=== PATIENT | male | born 1955 | race Caucasian/White ===

== ENCOUNTER 2024-06-27 11:00 | Inpatient (IN) | payer OTHER ==
[~2024-06-27] VITALS: Ht 162.6 cm; Wt 86.8 kg
[2024-06-27] VITALS (7 sets, daily range): BP systolic 108–116; BP diastolic 69–73; PULSE 85–92; RESP 16–20; TEMP 97.9–98; O2SAT 91–95
[2024-06-27 15:23] LABS: BASOPHILS # (AUTO) 0.03 K/uL (0.00-0.20); BASOPHILS % (AUTO) 0.3 % (0.0-5.0); HEMATOCRIT 39.9 % (42-54); IMMATURE GRANULOCYTE ABSOLUTE 0.04 K/uL (0-1); LYMPHOCYTES # (AUTO) 2.1 K/uL (1.0-4.8); LYMPHOCYTES % (AUTO) 20.6 % (21.0-51.0); MEAN CORPUSCULAR HEMOGLOBIN 30.9 pg (27.0-33.0); MEAN CORPUSCULAR HGB CONC 34.3 g/dL (32.0-36.0); MEAN CORPUSCULAR VOLUME 89.9 fL (79-99); MONOCYTES # (AUTO) 0.6 K/uL (0.1-1.0); MONOCYTES % (AUTO) 6.2 % (3.0-13.0); NEUTROPHILS # (AUTO) 7.4 K/uL (1.8-7.7); NEUTROPHILS % (AUTO) 71.5 % (40.0-77.0); PLATELET COUNT (AUTO) 268 K/uL (130-400); RED BLOOD CELL COUNT(AUTO) 4.44 MIL/uL (4.50-6.20); RED CELL DISTRIBUTION WIDTH 12.5 % (11.0-15.5); WHITE BLOOD COUNT (AUTO) 10.3 K/uL (4.8-10.8)
[2024-06-27 15:39] LABS: CREATININE 1.1 mg/dL (0.5-1.3); POTASSIUM 4.2 mmol/L (3.5-5.1)
[2024-06-27 15:44] LABS: BILIRUBIN,TOTAL 0.6 mg/dL (0.2-1.0); TOTAL PROTEIN, SERUM 7.3 g/dL (6.0-8.3)
[2024-06-27] MEDS ORDERED: acetaMINOPHEN 325 MG TAB PO PRN (17:30)
[2024-06-27] MEDS ORDERED: ondanSETRON 4MG INJ IVP PRN (17:30)
[2024-06-27] MEDS ORDERED: PoTASSium chloRIDE 20MEQ/100ML 100 ML IV PRN (17:30)
[2024-06-27] MEDS ORDERED: hydrALAZine 20MG/ML VIAL IV PRN (17:30)
[2024-06-27] MEDS ORDERED: LAbetaLOL 20MG SYG IV PRN (17:30)
[2024-06-27] MEDS ORDERED: PoTASSium chl 10% ELIXIR 20MEQ 20 MEQ/15 ML UDCUP PO PRN (17:30)
[2024-06-27] MEDS ORDERED: MAGNESIUM 2GM PREMIX 50ML 50 ML IV PRN (17:30)
[2024-06-27] MEDS ORDERED: acetaMINOPHEN 650 MG SUPPOSITORY RC PRN (17:30)
[2024-06-27] MEDS ORDERED: ALBUTEROL 0.083% 2.5 MG/3 ML INH IH PRN (17:30)
[2024-06-27 17:40] LABS: HEMOGLOBIN A1C 9.6 % (4.0-6.0)
[2024-06-27] MEDS: furoSEMIDE 40MG VIAL IV SCH (17:55)
[2024-06-27] MEDS: cefTRIAXone 1G VIAL IVPB SCH (17:55)
[2024-06-27] MEDS: AZITHROMYCIN 500MG+NS 250ML 250 ML IVPB SCH (17:55)
[2024-06-27 18:01] LABS: APPEARANCE,URINE CLEAR (CLEAR); BILIRUBIN,URINE NEGATIVE (NEGATIVE); COLOR,URINE YELLOW (YELLOW); GLUCOSE, URINE (UA) >=1000 mg/dL (NEGATIVE); KETONES,URINE NEGATIVE (NEGATIVE); LEUKOCYTE ESTERASE ,URINE NEGATIVE Leu/uL (NEGATIVE); NITRATE,URINE NEGATIVE (NEGATIVE); PROTEIN,URINE 50 mg/dL (NEGATIVE)
[2024-06-27 18:03] LABS: ADD UA MICROSCOPIC YES
[2024-06-27 18:04] LABS: MUCUS,URINE RARE LPF (None Seen)
[2024-06-27 18:06] LABS: SARS-CoV-2, RNA, NAAT NEGATIVE SARS CoV-2 (NEGATIVE)
[2024-06-27 18:09] LABS: INFLUENZA TYPE A Negative For Type A (NEGATIVE); INFLUENZA TYPE B Negative For Type B (NEGATIVE)
[2024-06-27] MEDS: IpraTROPium/alBUTERol SULFATE 3 ML SOLUTION IH SCH (19:02)
[2024-06-27] MEDS: INSULIN humuLIN R 100 UNIT/ML 3ML SQ SCH (20:37)
[2024-06-27] MEDS ORDERED: GABA-1405 PO (21:53)
[2024-06-27] MEDS ORDERED: AMLO-257 PO (21:53)
[2024-06-27] MEDS ORDERED: CLAR-44 PO (21:53)
[2024-06-27] MEDS ORDERED: AMOX500C2 PO (21:53)
[2024-06-27] MEDS ORDERED: GLIP5TAB15 PO (21:53)
[2024-06-27] MEDS ORDERED: INSU100I15 SQ (21:53)
[2024-06-27] MEDS ORDERED: ROSU20TA98 PO (21:53)
[2024-06-27] MEDS ORDERED: TRAM50TA4 PO (21:53)
[2024-06-27] MEDS ORDERED: PIOG30TA70 PO (21:53)
[2024-06-27] MEDS ORDERED: OMEP40CA21 PO (21:53)
[2024-06-27] MEDS: HYDROcodone/APAP 5/325 1 TAB TABLET PO PRN (21:55)
[2024-06-28] VITALS (10 sets, daily range): BP systolic 108–140; BP diastolic 55–78; PULSE 85–103; RESP 18–20; TEMP 97.6–98; O2SAT 93–95
[2024-06-28 05:39] LABS: BASOPHILS # (AUTO) 0.08 K/uL (0.00-0.20); BASOPHILS % (AUTO) 0.7 % (0.0-5.0); EOSINOPHILS # (AUTO) 0.23 K/uL (0.00-0.70); EOSINOPHILS % (AUTO) 2.2 % (0.0-8.0); HEMATOCRIT 40.9 % (42-54); IMMATURE GRANULOCYTE ABSOLUTE 0.03 K/uL (0-1); LYMPHOCYTES # (AUTO) 2.5 K/uL (1.0-4.8); LYMPHOCYTES % (AUTO) 23.7 % (21.0-51.0); MEAN CORPUSCULAR VOLUME 91.1 fL (79-99); MONOCYTES # (AUTO) 0.7 K/uL (0.1-1.0); MONOCYTES % (AUTO) 6.8 % (3.0-13.0); NEUTROPHILS # (AUTO) 7.1 K/uL (1.8-7.7); NEUTROPHILS % (AUTO) 66.3 % (40.0-77.0); PLATELET COUNT (AUTO) 291 K/uL (130-400); RED BLOOD CELL COUNT(AUTO) 4.49 MIL/uL (4.50-6.20); RED CELL DISTRIBUTION WIDTH 12.7 % (11.0-15.5); WHITE BLOOD COUNT (AUTO) 10.7 K/uL (4.8-10.8)
[2024-06-28 06:05] LABS: CREATININE 1.3 mg/dL (0.5-1.3); MAGNESIUM 2.2 mg/dL (1.80-2.40); POTASSIUM 3.6 mmol/L (3.5-5.1)
[2024-06-28] MEDS: PoTASSium chloRIDE 20MEQ ER 20 MEQ ERTAB PO PRN (06:28)
[2024-06-28] MEDS: ENOXAPARIN SODIUM 40 MG/0.4 ML SYRINGE SQ SCH (08:37)
[2024-06-28] MEDS: PANTOPrazole 40 MG TAB DR PO SCH (08:37)
[2024-06-28] MEDS: HYDROcodone/APAP 5/325 1 TAB TABLET PO PRN (17:15)
[2024-06-29] VITALS (13 sets, daily range): BP systolic 126–138; BP diastolic 69–81; PULSE 83–104; RESP 18–24; TEMP 97.7–99; O2SAT 94–96
[2024-06-29] MEDS: LACTULOSE 20 GM/30 ML UDCUP PO PRN (08:52)
[2024-06-29] MEDS: INSULIN LISpro 100 UNIT/ML 3ML SQ SCH (13:28)
[2024-06-29] MEDS: AMOXICILLIN 500 MG CAPSULE PO SCH (13:42)
[2024-06-29] MEDS: GABAPENTIN 300 MG CAPSULE PO SCH (13:42)
[2024-06-29] MEDS: furoSEMIDE 40 MG TABLET PO SCH (17:04)
[2024-06-29] MEDS: carVEDIlol 3.125 MG TABLET PO SCH (20:22)
[2024-06-29] MEDS: CLARITHROMYCIN 500 MG TABLET PO SCH (20:22)
[2024-06-29] MEDS: atorVAStatin 40 MG TABLET PO SCH (20:22)
[2024-06-29] MEDS ORDERED: NON-FORMULARY MEDICATION 1 EACH (Omeprazole 1 CAP) PO SCH (21:00)
[2024-06-30] VITALS (14 sets, daily range): BP systolic 97–145; BP diastolic 58–83; PULSE 79–94; RESP 17–20; TEMP 97.8–98.7; O2SAT 91–95
[2024-06-30 06:20] LABS: MEAN CORPUSCULAR HEMOGLOBIN 30.6 pg (27.0-33.0); MEAN CORPUSCULAR HGB CONC 32.9 g/dL (32.0-36.0); MEAN CORPUSCULAR VOLUME 92.9 fL (79-99); RED BLOOD CELL COUNT(AUTO) 4.09 MIL/uL (4.50-6.20); RED CELL DISTRIBUTION WIDTH 13.2 % (11.0-15.5); WHITE BLOOD COUNT (AUTO) 10.7 K/uL (4.8-10.8)
[2024-06-30 06:35] LABS: CREATININE 1.2 mg/dL (0.5-1.3); POTASSIUM 4.2 mmol/L (3.5-5.1)
[2024-06-30] MEDS: PIOGLITAZONE 30MG TAB PO SCH (08:31)
[2024-06-30] MEDS: LoSARTan 50 MG TABLET PO SCH (08:32)
[2024-06-30] MEDS: ASPIRIN 81 MG EC TAB PO SCH (08:33)
[2024-06-30] MEDS ORDERED: amLODIPine 5 MG TAB PO SCH ×2 (09:00)
[2024-06-30] MEDS: furoSEMIDE 40MG VIAL IV SCH (16:49)
[2024-07-01] VITALS (13 sets, daily range): BP systolic 99–130; BP diastolic 52–70; PULSE 74–90; RESP 16–20; TEMP 97.7–98.2; O2SAT 86–96
[2024-07-01 05:14] LABS: HEMATOCRIT 38.8 % (42-54); MEAN CORPUSCULAR HEMOGLOBIN 29.7 pg (27.0-33.0); MEAN CORPUSCULAR VOLUME 92.8 fL (79-99); RED BLOOD CELL COUNT(AUTO) 4.18 MIL/uL (4.50-6.20); RED CELL DISTRIBUTION WIDTH 13.1 % (11.0-15.5); WHITE BLOOD COUNT (AUTO) 10.3 K/uL (4.8-10.8)
[2024-07-01 05:33] LABS: CREATININE 1.1 mg/dL (0.5-1.3); POTASSIUM 3.7 mmol/L (3.5-5.1)
[2024-07-01] MEDS: furoSEMIDE 40MG VIAL IV SCH ×2 (13:19→20:32)
[2024-07-01] MEDS: CEFTRIAXONE 2GM VIAL IVPB SCH (14:34)
[2024-07-01] MEDS: AZITHROMYCIN 500MG+NS 250ML 250 ML IVPB SCH (16:25)
[2024-07-01] MEDS: SPIRONOLACTONE 25 MG TAB PO SCH (20:31)
[2024-07-01] MEDS: carVEDIlol 3.125 MG TABLET PO SCH (20:32)
[2024-07-01] MEDS: SACUBITRIL/VALSARTAN 1 EACH TABLET PO SCH (20:33)
[2024-07-01] MEDS ORDERED: carVEDIlol 6.25 MG TABLET PO SCH (21:00)
[2024-07-02] VITALS (14 sets, daily range): BP systolic 100–140; BP diastolic 56–82; PULSE 68–91; RESP 16–18; TEMP 97.8–98.1; O2SAT 94–98
[2024-07-02 05:04] LABS: BASOPHILS # (AUTO) 0.08 K/uL (0.00-0.20); BASOPHILS % (AUTO) 0.7 % (0.0-5.0); EOSINOPHILS # (AUTO) 0.38 K/uL (0.00-0.70); EOSINOPHILS % (AUTO) 3.6 % (0.0-8.0); HEMATOCRIT 43.6 % (42-54); IMMATURE GRANULOCYTE ABSOLUTE 0.04 K/uL (0-1); LYMPHOCYTES # (AUTO) 2.9 K/uL (1.0-4.8); LYMPHOCYTES % (AUTO) 26.9 % (21.0-51.0); MEAN CORPUSCULAR HEMOGLOBIN 30.5 pg (27.0-33.0); MEAN CORPUSCULAR HGB CONC 32.3 g/dL (32.0-36.0); MEAN CORPUSCULAR VOLUME 94.2 fL (79-99); MONOCYTES # (AUTO) 0.7 K/uL (0.1-1.0); MONOCYTES % (AUTO) 6.3 % (3.0-13.0); NEUTROPHILS # (AUTO) 6.6 K/uL (1.8-7.7); NEUTROPHILS % (AUTO) 62.1 % (40.0-77.0); PLATELET COUNT (AUTO) 338 K/uL (130-400); RED BLOOD CELL COUNT(AUTO) 4.63 MIL/uL (4.50-6.20); RED CELL DISTRIBUTION WIDTH 12.9 % (11.0-15.5); WHITE BLOOD COUNT (AUTO) 10.7 K/uL (4.8-10.8)
[2024-07-02 05:14] LABS: INR 1.08 (0.85-1.15); PROTHROMBIN TIME 11.6 SEC (9.6-11.6)
[2024-07-02 05:16] LABS: PARTIAL THROMBOPLASTIN TIME 27.3 SEC (26.3-35.5)
[2024-07-02 05:24] LABS: B-TYPE NATRIURETIC PEPTIDE 445 pg/mL (0-100)
[2024-07-02 05:29] LABS: BILIRUBIN,TOTAL 0.4 mg/dL (0.2-1.0); CREATININE 1.3 mg/dL (0.5-1.3); MAGNESIUM 2.1 mg/dL (1.80-2.40); POTASSIUM 4.4 mmol/L (3.5-5.1); THYROID STIMULATING HORMONE 1.56 uIU/mL (0.36-3.74); TOTAL PROTEIN, SERUM 6.9 g/dL (6.0-8.3)
[2024-07-02] MEDS: EMPAGLIFLOZIN 10MG TABLET PO SCH (09:04)
[2024-07-02 14:43] LABS: GLUCOSE PLEURAL FLUID 185; PROTEIN PLEURAL FLUID 2.2 mg/dL
[2024-07-02] MEDS ORDERED: DEXTROSE 50%-WATER 50 ML DISP.SYRIN IV PRN (15:00)
[2024-07-02] MEDS ORDERED: GLUCAGON 1MG KIT 1 MG ML IM PRN (15:00)
[2024-07-02 15:10] LABS: BODY FLUID RBC 0 /cu. mm.; BODY FLUID WBC 872 /cu. mm.
[2024-07-02 15:41] LABS: BF LYMPHOCYTE 82 %; BF MACROPHAGE 5; BF MESOTHELIAL 10 %; BF OTHER CELLS 2; BF TOTAL CELLS COUNTED 100
[2024-07-02 15:46] LABS: APPEARANCE BODY FLUID CLEAR (CLEAR); COLOR,BODY FLUID YELLOW (LT YELLOW); SPECIMENTYPE,BODY FLUID PLEURAL; TOTAL VOLUME,BODY FLUID 1400 mL
[2024-07-02] MEDS: INSULIN humuLIN R 100 UNIT/ML 3ML SQ SCH (16:30)
[2024-07-02] MEDS: metoLAZONE 2.5 MG TABLET PO SCH (17:06)
[2024-07-02] MEDS: DEXTROSE 50%-WATER 50 ML DISP.SYRIN IV ONE (18:43)
[2024-07-02] MEDS: DEXTROSE 50%-WATER 50 ML DISP.SYRIN IV SCH (18:44)
[2024-07-03] VITALS (16 sets, daily range): BP systolic 107–133; BP diastolic 58–71; PULSE 71–90; RESP 17–20; TEMP 97–98.5; O2SAT 95–98
[2024-07-03 05:40] LABS: BASOPHILS # (AUTO) 0.04 K/uL (0.00-0.20); BASOPHILS % (AUTO) 0.4 % (0.0-5.0); EOSINOPHILS # (AUTO) 0.31 K/uL (0.00-0.70); EOSINOPHILS % (AUTO) 2.9 % (0.0-8.0); HEMATOCRIT 42.4 % (42-54); IMMATURE GRANULOCYTE ABSOLUTE 0.06 K/uL (0-1); LYMPHOCYTES # (AUTO) 2.7 K/uL (1.0-4.8); LYMPHOCYTES % (AUTO) 25.3 % (21.0-51.0); MEAN CORPUSCULAR HEMOGLOBIN 30.2 pg (27.0-33.0); MEAN CORPUSCULAR HGB CONC 32.8 g/dL (32.0-36.0); MONOCYTES # (AUTO) 0.8 K/uL (0.1-1.0); MONOCYTES % (AUTO) 7.4 % (3.0-13.0); NEUTROPHILS # (AUTO) 6.9 K/uL (1.8-7.7); NEUTROPHILS % (AUTO) 63.4 % (40.0-77.0); PLATELET COUNT (AUTO) 337 K/uL (130-400); RED BLOOD CELL COUNT(AUTO) 4.61 MIL/uL (4.50-6.20); RED CELL DISTRIBUTION WIDTH 12.9 % (11.0-15.5); WHITE BLOOD COUNT (AUTO) 10.8 K/uL (4.8-10.8)
[2024-07-03 05:59] LABS: CREATININE 1.4 mg/dL (0.5-1.3); MAGNESIUM 2.2 mg/dL (1.80-2.40); POTASSIUM 4.7 mmol/L (3.5-5.1)
[2024-07-03] MEDS ORDERED: HYDROcodone/APAP 5/325 1 TAB TABLET PO PRN (06:00)
[2024-07-03] MEDS: metoLAZONE 2.5 MG TABLET PO ONE (09:46)
[2024-07-03] MEDS: HYDROcodone/APAP 5/325 1 TAB TABLET PO PRN (18:08)
[2024-07-04] VITALS (7 sets, daily range): BP systolic 116–132; BP diastolic 62–67; PULSE 70–80; RESP 18–20; TEMP 97.8–98.6; O2SAT 96–97
[2024-07-04 05:19] LABS: BASOPHILS # (AUTO) 0.08 K/uL (0.00-0.20); BASOPHILS % (AUTO) 0.6 % (0.0-5.0); EOSINOPHILS # (AUTO) 0.31 K/uL (0.00-0.70); EOSINOPHILS % (AUTO) 2.5 % (0.0-8.0); HEMATOCRIT 43.7 % (42-54); IMMATURE GRANULOCYTE ABSOLUTE 0.06 K/uL (0-1); LYMPHOCYTES # (AUTO) 3.1 K/uL (1.0-4.8); LYMPHOCYTES % (AUTO) 24.8 % (21.0-51.0); MEAN CORPUSCULAR HEMOGLOBIN 30.5 pg (27.0-33.0); MEAN CORPUSCULAR VOLUME 92.6 fL (79-99); MONOCYTES # (AUTO) 0.9 K/uL (0.1-1.0); MONOCYTES % (AUTO) 7.2 % (3.0-13.0); NEUTROPHILS % (AUTO) 64.4 % (40.0-77.0); PLATELET COUNT (AUTO) 333 K/uL (130-400); RED BLOOD CELL COUNT(AUTO) 4.72 MIL/uL (4.50-6.20); RED CELL DISTRIBUTION WIDTH 12.9 % (11.0-15.5); WHITE BLOOD COUNT (AUTO) 12.5 K/uL (4.8-10.8)
[2024-07-04 05:42] LABS: CREATININE 1.5 mg/dL (0.5-1.3); MAGNESIUM 2.3 mg/dL (1.80-2.40); POTASSIUM 3.7 mmol/L (3.5-5.1)
[2024-07-04 05:48] LABS: B-TYPE NATRIURETIC PEPTIDE 269 pg/mL (0-100)
[2024-07-04] MEDS ORDERED: IpraTROPium/alBUTERol SULFATE 3 ML SOLUTION IH PRN (09:30)
[2024-07-04] MEDS: furoSEMIDE 40 MG TABLET PO SCH (09:38)
== END 2024-07-04 18:45 | disposition home or self-care (01) | DRG 177 ==
LOC: EDH 11:00 → EDHIP 17:21 → OBSVTOIN 17:21 → 3AH 20:12
PROVIDERS: ADMIT Internal Medicine; ATTEND Internal Medicine
PROC: 0W993ZZ Drainage of Right Pleural Cavity, Percutaneous Approach (ICD-10-PCS; principal; 2024-07-02)
PROC: BB4BZZZ Ultrasonography of Pleura (ICD-10-PCS; 2024-07-02)
DX: J69.0 Pneumonitis due to inhalation of food and vomit (principal); I50.23 Acute on chronic systolic (congestive) heart failure; J96.01 Acute respiratory failure with hypoxia; E78.5 Hyperlipidemia, unspecified; E11.65 Type 2 diabetes mellitus with hyperglycemia; B96.81 Helicobacter pylori [H. pylori] as the cause of diseases classified elsewhere; I11.0 Hypertensive heart disease with heart failure; N20.0 Calculus of kidney; E66.9 Obesity, unspecified; N40.0 Benign prostatic hyperplasia without lower urinary tract symptoms; E11.40 Type 2 diabetes mellitus with diabetic neuropathy, unspecified; E11.649 Type 2 diabetes mellitus with hypoglycemia without coma; K21.9 Gastro-esophageal reflux disease without esophagitis; Z87.891 Personal history of nicotine dependence; Z87.442 Personal history of urinary calculi; Z68.32 Body mass index [BMI] 32.0-32.9, adult
CPT/HCPCS: 32554; 36415; 71045; 71250; 74176; 80048; 80053; 80061; 81001; 82945; 82948; 83036; 83615; 83735; 83880; 83986; 84132; 84145; 84157; 84439; 84443; 85025; 85027; 85610; 85730; 87071; 87116; 87205; 87206; 87635; 87804; 89051; 93306; 94640; 94664; 94760; G0378; J0456; J0696; J1650; J1815; J1940; J7070

== ENCOUNTER → 2024-07-22 | Outpatient (CLI) | payer OTHER ==
[~2024-07-22] MED LIST: GABA-1405 PO; GLIP5TAB15 PO; INSU100I15 SQ; OMEP40CA21 PO; PIOG30TA70 PO; TRAM50TA4 PO
[2024-07-22 12:36] LABS: CREATININE 1.4 mg/dL (0.5-1.3); POTASSIUM 4.4 mmol/L (3.5-5.1)
== END | disposition home or self-care (01) ==
LOC: LAB 09:22
PROVIDERS: ATTEND Internal Medicine Cardiovascular Disease
DX: E11.9 Type 2 diabetes mellitus without complications (principal); I50.22 Chronic systolic (congestive) heart failure; R06.83 Snoring
CPT/HCPCS: 36415; 80048; 83880

== ENCOUNTER → 2024-07-22 | Outpatient (CLI) | payer OTHER ==
--- NOTE | 2024-07-22 11:32 | HMCIMG ---
CHEST 2VWS REASON: CHRONIC SYSTOLIC CHF COMPARISON: 07/04/2024 FINDINGS: Two views of the chest were obtained. Lungs are clear. Heart size is normal. There is no pulmonary vascular congestion. Mediastinum and bony thorax appear unremarkable. IMPRESSION: Normal two view chest x-ray.
== END | disposition home or self-care (01) ==
LOC: RAH 10:26
PROVIDERS: ATTEND Internal Medicine Cardiovascular Disease
DX: I50.22 Chronic systolic (congestive) heart failure (principal)
CPT/HCPCS: 36415; 71046; 80048; 83880

== ENCOUNTER 2024-11-06 08:53 | Day surgery (SDC) | payer OTHER ==
[2024-11-04 11:48] LABS: BASOPHILS # (AUTO) 0.09 K/uL (0.00-0.20); BASOPHILS % (AUTO) 0.8 % (0.0-5.0); EOSINOPHILS % (AUTO) 1.9 % (0.0-8.0); HEMATOCRIT 50.3 % (42-54); IMMATURE GRANULOCYTE ABSOLUTE 0.03 K/uL (0-1); LYMPHOCYTES # (AUTO) 3.2 K/uL (1.0-4.8); LYMPHOCYTES % (AUTO) 29.9 % (21.0-51.0); MEAN CORPUSCULAR HEMOGLOBIN 29.6 pg (27.0-33.0); MEAN CORPUSCULAR VOLUME 89.7 fL (79-99); MONOCYTES # (AUTO) 0.7 K/uL (0.1-1.0); MONOCYTES % (AUTO) 6.9 % (3.0-13.0); NEUTROPHILS # (AUTO) 6.4 K/uL (1.8-7.7); NEUTROPHILS % (AUTO) 60.2 % (40.0-77.0); PLATELET COUNT (AUTO) 257 K/uL (130-400); RED BLOOD CELL COUNT(AUTO) 5.61 MIL/uL (4.50-6.20); RED CELL DISTRIBUTION WIDTH 12.6 % (11.0-15.5); WHITE BLOOD COUNT (AUTO) 10.7 K/uL (4.8-10.8)
--- NOTE | 2024-11-04 11:49 | EKG ---
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
[2024-11-04 11:56] LABS: CREATININE 1.4 mg/dL (0.5-1.3); POTASSIUM 4.3 mmol/L (3.5-5.1)
[2024-11-04 12:07] VITALS: BP 119/64; PULSE 92; RESP 19; TEMP 97.8
[2024-11-04 12:10] LABS: INR 0.94 (0.85-1.15); PROTHROMBIN TIME 10.6 SEC (9.6-11.6)
[2024-11-04 12:11] LABS: PARTIAL THROMBOPLASTIN TIME 26.7 SEC (26.3-35.5)
[2024-11-04 12:15] LABS: B-TYPE NATRIURETIC PEPTIDE 167 pg/mL (0-100)
[2024-11-04 12:40] LABS: APPEARANCE,URINE CLEAR (CLEAR); BILIRUBIN,URINE NEGATIVE (NEGATIVE); GLUCOSE, URINE (UA) >=1000 mg/dL (NEGATIVE); KETONES,URINE NEGATIVE (NEGATIVE); LEUKOCYTE ESTERASE ,URINE NEGATIVE Leu/uL (NEGATIVE); NITRATE,URINE NEGATIVE (NEGATIVE); OCCULT BLOOD,URINE NEGATIVE (NEGATIVE); UROBILINOGEN,URINE 0.2 mg/dL (0.2-1.0)
[2024-11-04 12:45] LABS: COLOR,URINE STRAW (YELLOW)
[2024-11-04 12:46] LABS: ADD UA MICROSCOPIC YES; MUCUS,URINE RARE LPF (None Seen); PROTEIN,URINE NEGATIVE (NEGATIVE); WBC,URINE 0-1 /HPF (0-1)
--- NOTE | 2024-11-04 15:23 | HMCIMG ---
CHEST 1VW HISTORY: Preop COMPARISON: 07/22/2024 FINDINGS: A frontal projection of the chest was obtained. No acute pulmonary infiltrates is seen. The heart is borderline enlarged. Degenerative changes are seen. Aortic calcifications are seen. Prominent interstitial markings are seen. IMPRESSION: 1. No acute pulmonary infiltrate is seen.
--- NOTE | 2024-11-05 13:48 | NUR ---
RE: LABS REPORTED BMP RESULTS TO DR ELLER, NO NEW ORDERS RECEIVED.
[~2024-11-06] VITALS: Ht 162.6 cm; Wt 84.8 kg
[~2024-11-06 08:53] MED LIST changes: +ASPI-1197 PO; +ATOR40TA71 PO; +CARV3.12 PO; +CYCL-309 PO; +EMPA25TA PO; +FURO40TA5 PO; +INSU300I3 SQ; -PIOG30TA70 PO; +TRAM100T40 PO; -TRAM50TA4 PO; +VALS40TA11 PO
[2024-11-06 09:15] VITALS: BP 122/66; PULSE 82; RESP 15; TEMP 97.1
[2024-11-06] MEDS: 0.9%NACL 1000ML 1,000 ML IV SCH (10:54)
--- NOTE | 2024-11-06 12:50 | NUR ---
endocrine: left message with dr. allen regarding patients blood sugar 100 and requesting something to be given to patient to raise glucose. awaiting call return.
--- NOTE | 2024-11-06 14:25 | NUR ---
DR. ELLER CAME BY AND SPOKE WITH PT AND SPOUSE TO RE-SCHEDULE CATH FOR ANOTHER DAY. BOTH PT AND SPOUSE AGREE. IV REMOVED SITE ASYMPTOMATIC.
== END 2024-11-06 14:40 | disposition home or self-care (01) ==
LOC: DAH 08:53
PROVIDERS: ATTEND Internal Medicine Cardiovascular Disease
DX: R94.39 Abnormal result of other cardiovascular function study (principal); Z53.8 Procedure and treatment not carried out for other reasons; R55 Syncope and collapse; I11.0 Hypertensive heart disease with heart failure; I50.22 Chronic systolic (congestive) heart failure; E78.5 Hyperlipidemia, unspecified; E11.59 Type 2 diabetes mellitus with other circulatory complications; E66.9 Obesity, unspecified; Z87.898 Personal history of other specified conditions; Z80.9 Family history of malignant neoplasm, unspecified; Z82.49 Family history of ischemic heart disease and other diseases of the circulatory system; Z68.32 Body mass index [BMI] 32.0-32.9, adult; Z79.899 Other long term (current) drug therapy; Z79.82 Long term (current) use of aspirin
CPT/HCPCS: 80048; 83880; 85025; 85610; 85730; 81001; 36415; 71045; 93005; 82948 ×3; A4223 ×3; A4221; J7030; A4215; A4222; A4663; A4216; A4606

== ENCOUNTER → 2024-12-24 | Outpatient (CLI) | payer OTHER ==
--- NOTE | 2024-12-24 12:37 | HMCIMG ---
CHEST 2VWS HISTORY: Chronic systolic heart failure COMPARISON: 11/04/2024 FINDINGS: Frontal and lateral projections of the chest were obtained. There is no acute pulmonary infiltrates or failure. The heart is borderline enlarged. No evidence of aortic calcification is seen. Degenerative changes are seen of the thoracolumbar spine. Prominent interstitial markings are seen. IMPRESSION: 1. No acute pulmonary infiltrates.
== END | disposition home or self-care (01) ==
LOC: RAH 11:38
PROVIDERS: ATTEND Family Medicine
DX: J84.89 Other specified interstitial pulmonary diseases (principal); I50.22 Chronic systolic (congestive) heart failure; M47.815 Spondylosis without myelopathy or radiculopathy, thoracolumbar region
CPT/HCPCS: 71046